=== PATIENT | male | born 1950 | race Caucasian/White ===

== ENCOUNTER 2018-11-09 21:21 | Emergency (ER) | payer BC, MEDICARE ==
[~2018-11-09] VITALS: Ht 177.8 cm; Wt 100.0 kg
[2018-11-09 21:50] VITALS: BP 152/78
== END 2018-11-10 01:45 | disposition left against medical advice (07) ==
LOC: ER 21:22
DX: R11.0 Nausea (principal); E11.9 Type 2 diabetes mellitus without complications; Z53.21 Procedure and treatment not carried out due to patient leaving prior to being seen by health care provider
CPT/HCPCS: 82948